=== PATIENT | male | born 1970 | race Caucasian/White ===

== ENCOUNTER 2016-11-01 11:28 | Emergency (ER) | payer SELFPAY ==
[2016-11-01 12:23] VITALS: BP 151/62; PULSE 78; RESP 18; TEMP 98; O2SAT 97
[2016-11-01 12:31] LABS: COLOR YELLOW; LEUKOCYTE ESTERASE,URINE NEGATIVE (NEGATIVE); NITRITE,URINE NEGATIVE (NEGATIVE)
[2016-11-01 12:46] LABS: BACTERIA TRACE /hpf (NONE SEEN); MUCUS 1+ /lpf (NONE-1+); WBC,URINE 15-25 /hpf (0-3)
--- NOTE | 2016-11-01 13:00 | UCPHY ---
H & P Time Seen by Provider: 11/01/16 12:49 Patient Type: New HPI/ROS: This patient reports being treated for prostatitis with Levaquin for 10 days with ongoing symptoms. He was seen in [place] for his presentation of discomfort with urination and lower belly pain. A CT with IV contrast was performed to rule out appendicitis was negative for intra-abdominal pathology the exception with swollen prostate that was tender on exam associated with pyuria on his urinalysis. Culture grew out E coli. This history is all provided by the patient as I do not have medical records from the facility where he was seen in [place]. This patient has had 1 prior episode of prostatitis improved with Flomax which was not prescribed. He requests a repeat antibiotic and Flomax. ROS: No high fevers or chills since he has started on treatment. He reports no nausea vomiting or other GI symptoms. No belly pain. : No urethral discharge. No testicular pain or swelling. 7 point ROS is otherwise negative Past Medical/Surgical History: Otherwise healthy. Social History: Monogamous no STD risk factors. Smoking Status: Never smoked Physical Exam: Physical Exam Vital signs are normal. General: No acute distress Eyes: Pupils equal and react to light. Extraocular motions are intact. Lungs: No respiratory distress. Cardiac: Brisk capillary refill is intact throughout. Abdomen: Soft with mild suprapubic tenderness. : No testicular tenderness. No CVA tenderness. Skin: No rash or pallor. Neuro: Alert and oriented x3 with no sensorimotor deficits. Initial differential diagnosis: Prostatitis, pyelonephritis, cystitis Constitutional: Initial Vital Signs Temperature (C) 36.6 C 11/01/16 12:21 Heart Rate 78 11/01/16 12:21 Respiratory Rate 18 11/01/16 12:21 Blood Pressure 151/62 H 11/01/16 12:21 O2 Sat (%) 97 11/01/16 12:21 O2 Delivery Mode Room Air Allergies/Adverse Reactions: No Known Allergies Allergy (Unverified 11/01/16 12:57) Home Medications: Medication Instructions Recorded Doxycycline Hyclate 100 mg PO BID #28 tab 11/01/16 Levaquin 11/01/16 Tamsulosin HCl [Flomax 0.4 MG (*)] 0.4 mg PO DAILY #10 cap 11/01/16 MDM/Departure - MDM Diagnostics: Urinalysis reveals bacteria and pyuria. Cultures pending. 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 We will use doxycycline instead. - Depart Disposition: Home, Routine, Self-Care Clinical Impression: Prostatitis Qualifiers: Prostatitis type: acute Qualifier Code: (N41.0) Acute prostatitis Condition: Good Instructions: Prostatitis (ED) Additional Instructions: Diagnosis: Acute prostatitis Plan: Doxycycline antibiotic as prescribed Flomax Plenty fluids Ibuprofen for discomfort as needed Follow up with urology for any ongoing symptoms. Prescriptions: Doxycycline Hyclate 100 mg PO BID #28 tab Tamsulosin HCl [Flomax 0.4 MG (*)] 0.4 mg PO DAILY #10 cap Referrals: OUT OF STATE,. [Primary Care Provider] - As per Instructions Tyler Joshi MD [Medical Doctor] - As per Instructions - PQRS PQRS Measurement: NA
== END 2016-11-01 13:30 | disposition home or self-care (01) ==
LOC: CED 11:28
DX: N41.0 Acute prostatitis (principal)
CPT/HCPCS: 81003-PO; 81015-PO; G0463-PO